=== PATIENT | male | born 1960 | race African-American/Black ===

== ENCOUNTER 2018-08-16 11:50 | Outpatient (CLI) | payer MEDICARE, MEDICAID ==
[~2018-08-16 11:50] MED LIST: AMBIEN10 M1 ORAL; BACLOFEN10 MG ORAL; BARACLUDE1 MG ORAL; CATAPRES0.1 MG ORAL; ENSURE COMPLET237 ML PO; HARVONI 90-4001 EACH PO; ISENTRESS400 MG ORAL; SEROSTIM6 M1 SQ; TRUVADA 200 MG1 EAC1 ORAL
--- NOTE | 2018-08-16 13:27 | Diagnostic Imaging Report ---
Indication:Abdominal pain Technique: Grayscale and duplex Doppler imaging of the abdomen performed. Comparison: None Findings: The liver shows slightly coarsened echotexture. There is a 3.2 cm cyst in the right lobe. Other, much smaller cysts were noted on MR in 2012. The gallbladder is unremarkable. The demonstrated part of the pancreas, aorta and IVC show no abnormalities. There is a nonobstructive stone suspected within the right kidney. There is no hydronephrosis. Small right renal cyst noted. CBD is 4 mm. The spleen is normal in size. There is no biliary ductal dilatation identified. Doppler evaluation of the main portal vein shows patency. There is no ascites. Impression: Liver cyst. Nonobstructive stone in the right kidney.
== END 2018-08-16 13:50 | disposition home or self-care (01) ==
LOC: ULS 11:50
DX: B16.9 Acute hepatitis B without delta-agent and without hepatic coma (principal); B17.10 Acute hepatitis C without hepatic coma; B18.1 Chronic viral hepatitis B without delta-agent; B18.2 Chronic viral hepatitis C
CPT/HCPCS: 76700

== ENCOUNTER 2019-06-12 12:48 | Emergency (ER) | payer MEDICARE, MEDICAID ==
[~2019-06-12] VITALS: Ht 170.2 cm; Wt 67.1 kg
[2019-06-12 13:15] VITALS: BP 129/102
--- NOTE | 2019-06-12 13:18 | Emergency Room Report ---
History of Present Illness General Chief Complaint: Foreign Body Present Illness HPI 58-year-old male presents to the emergency department complaining of retained ear foreign body since last night. Patient reports the tip of his earphones is stuck inside of his right ear. Patient reports he felt something inside of his ear and accidentally pushed it and father with his finger last night. Patient denies pain at this time. Patient denies any pertinent past medical history. Patient denies discharge, bleeding or notable trauma. Patient denies loss of hearing in the affected ear. No other aggravating or relieving factors. Allergies: Coded Allergies: AMOXICILLIN (Verified Allergy, Mild, 12/06/11) Patient History Past Medical History: see triage record Past Surgical History: none Pertinent Family History: none Immunizations: UTD Reviewed Nursing Documentation: PMH: Agreed; PSxH: Agreed Nursing Documentation-PMH Hx Cardiac Problems: Yes - MURMUR Hx Hypertension: Yes Hx Cancer: No Hx Gastrointestinal Problems: Yes - BLEEDING ULCER Hx Dialysis: Yes - abnormal labs Hx Neurological Problems: No Review of Systems All Other Systems: negative except mentioned in HPI Physical Exam Vital Signs Date Time Temp Pulse Resp B/P (MAP) Pulse Ox O2 Delivery O2 Flow Rate FiO2 06/12/19 13:01 98.2 70 18 129/102 (111) 98 Room Air Sp02 EP Interpretation: reviewed, normal General Appearance: no apparent distress, alert, GCS 15, non-toxic Head: normocephalic, atraumatic Eyes: bilateral eye normal inspection, bilateral eye PERRL ENT: hearing grossly normal, normal voice, other - there is a black rubber FB in the canal of the right ear. The left canal and TM are WNL. no bleeding or DC noted. Neck: full range of motion Respiratory: lungs clear, normal breath sounds, speaking full sentences Cardiovascular #1: regular rate, rhythm Genitourinary: normal inspection Musculoskeletal: normal range of motion, gait/station normal, non-tender Neurologic: alert, motor strength/tone normal, oriented x3, sensory intact, responsive, speech normal Psychiatric: judgement/insight normal Procedures Additional Procedure Procedure Narrative Verbal consent was obtained by pt. for removal of fb in the right ear canal. No anesthesia was used. Single attempt with tweezers was made to remove foreign body and was successful. The pt. tolerated well and there were no complications. Medical Decision Making PA Attestation Dr. Beavers is my supervising physician whom pt. management has been discussed with. Diagnostic Impression: Primary Impression: Ear foreign body Qualified Codes: T16.1XXA - Foreign body in right ear, initial encounter ER Course 58-year-old male presents to the emergency department complaining of retained ear foreign body since last night. Patient reports the tip of his earphones is stuck inside of his right ear. Patient reports he felt something inside of his ear and accidentally pushed it and father with his finger last night. Patient denies pain at this time. Patient denies any pertinent past medical history. Patient denies discharge, bleeding or notable trauma. Patient denies loss of hearing in the affected ear. No other aggravating or relieving factors. Ddx considered but are not limited to OM, OE, mastoiditis, TM perforation, FB Vital signs: are WNL, pt. is afebrile H&PE are most consistent with foreign body of the right ear ORDERS: none required at this time, the diagnosis is clinical -OTOSCOPY: obvious round/rubber Fb in the right ear. no evidence of infection or trauma to the external canal. ED INTERVENTIONS: Single attempt with tweezers was made to remove foreign body and was successful. DISCHARGE: At this time pt. is stable for d/c to home. Will provide printed patient care instructions, and any necessary prescriptions. Care plan and follow up instructions have been discussed with the patient prior to discharge. Last Vital Signs Date Time Temp Pulse Resp B/P (MAP) Pulse Ox O2 Delivery O2 Flow Rate FiO2 06/12/19 13:01 98.2 70 18 129/102 (111) 98 Room Air Status: improved Disposition: HOME, SELF-CARE Condition: Stable Patient Instructions: Ear Foreign Body Additional Instructions: Follow up with a Primary Care Provider in 3-5 days, even if your symptoms have resolved. Return sooner to ED if new symptoms occur, or current symptoms become worse. - Please note that this Emergency Department Report was dictated using [employer] truck operator technology software, occasionally this can lead to erroneous entry secondary to interpretation by the dictation equipment. Elyssa Yoo Jun 12, 2019 13:18
[2019-06-12 13:50] VITALS: BP 124/98
== END 2019-06-12 13:50 | disposition home or self-care (01) ==
LOC: EMR 13:20
DX: T16.1XXA Foreign body in right ear, initial encounter (principal); X58.XXXA Exposure to other specified factors, initial encounter; Y92.9 Unspecified place or not applicable; Z88.0 Allergy status to penicillin; I10 Essential (primary) hypertension
CPT/HCPCS: 99283